=== PATIENT | female | born 1930 | race Caucasian/White ===

== ENCOUNTER → 2016-09-06 | Outpatient (CLI) | payer MEDICARE, OTHER ==
[~2016-09-06] MED LIST: B COTAB3 PO; CENTTAB9 PO; FOLI1TAB PO; THYR15 PO; VITA400C70 PO
[2016-09-06 09:23] LABS: ANION GAP 11 MEQ/L (5-15); BICARBONATE 24.3 MEQ/L (21.0-32.0); BLOOD UREA NITROGEN 13 MG/DL (7-18); CHLORIDE 102 MEQ/L (98-107); GLOMERULAR FILTRATION RATE 88 ML/MIN (>89); GLUCOSE,FASTING 94 MG/DL (74-99); POTASSIUM 4.2 MEQ/L (3.5-5.1); SODIUM (NA) 137 MEQ/L (136-145)
[2016-09-06 09:28] LABS: ALKALINE PHOSPHATASE 96 U/L (45-117); ALT (GPT) 25 U/L (10-53); AST (GOT) 29 U/L (15-37); HDL CHOLESTEROL 75.1 MG/DL (40.0-60.0); LDL CHOLESTEROL 59 MG/DL (0-99); TOTAL BILIRUBIN ADULT 3.3 MG/DL (0.2-1.0)
[2016-09-06 10:18] LABS: AUTOMATED NEUTROPHIL # 5.6 TH/MM3 (1.8-7.7); BASOPHIL # 0.2 TH/MM3 (0-0.2); BASOPHIL % 2.4 % (0.0-2.0); EOSINOPHIL # 0.1 TH/MM3 (0-0.4); HEMATOCRIT 28.1 % (35.0-46.0); LYMPH % 11.7 % (9.0-44.0); LYMPHOCYTE # 0.8 TH/MM3 (1.0-4.8); MEAN CELL VOLUME 97.6 FL (80.0-100.0); MEAN CORPUSCULAR HEMOGLOBIN 32.5 PG (27.0-34.0); MEAN CORPUSCULAR HGB CONC 33.3 % (32.0-36.0); MONO % 4.5 % (0.0-8.0); NEUT % 79.4 % (16.0-70.0); PLATELET COUNT 270 TH/MM3 (150-450); RED BLOOD COUNT 2.88 MIL/MM3 (4.00-5.30); RED CELL DISTRIBUTION WIDTH 15.9 % (11.6-17.2); WHITE BLOOD COUNT 7.1 TH/MM3 (4.0-11.0)
[2016-09-06 10:19] LABS: HEMO FLAGS AUTO DIFF
[2016-09-06 10:39] LABS: PLATELET ESTIMATE SMEAR NORMAL (NORMAL); PLATELET MORPHOLOGY NORMAL (NORMAL); SCAN/DIFF AUTO DIFF CONFIRMED
[2016-09-08 15:59] LABS: ESTRADIOL <10 pg/mL (())
[2016-09-11 23:55] LABS: PROGESTERONE LESS THAN 0.1 ng/mL (())
== END ==
LOC: HLAB 08:24
PROVIDERS: ATTEND Family Medicine
DX: I10 Essential (primary) hypertension (principal); E10.8 Type 1 diabetes mellitus with unspecified complications; E78.2 Mixed hyperlipidemia; E03.8 Other specified hypothyroidism; D59.1 Other autoimmune hemolytic anemias; Z00.00 Encounter for general adult medical examination without abnormal findings
CPT/HCPCS: 36415; 80053; 80061; 82670; 82679; 84144; 84403; 85025

== ENCOUNTER → 2016-10-31 | Outpatient (CLI) | payer MEDICARE, OTHER ==
[2016-10-31 08:56] LABS: ALT (GPT) 27 U/L (10-53); ANION GAP 11 MEQ/L (5-15); AST (GOT) 33 U/L (15-37); BICARBONATE 24.1 MEQ/L (21.0-32.0); BLOOD UREA NITROGEN 12 MG/DL (7-18); CHLORIDE 105 MEQ/L (98-107); GLOMERULAR FILTRATION RATE 88 ML/MIN (>89); GLUCOSE,FASTING 80 MG/DL (74-99); POTASSIUM 4.5 MEQ/L (3.5-5.1); SODIUM (NA) 140 MEQ/L (136-145)
[2016-10-31 09:07] LABS: ALKALINE PHOSPHATASE 93 U/L (45-117); IMMUNOGLOBULIN A 227 MG/DL (96-532); IMMUNOGLOBULIN G 727 MG/DL (650-1610); TOTAL BILIRUBIN ADULT 3.5 MG/DL (0.2-1.0); TOTAL PROTEIN SPE 7.7 GM/DL (6.0-7.6)
[2016-10-31 09:37] LABS: IMMUNOGLOBULIN M 1730 MG/DL (39-238)
[2016-10-31 10:08] LABS: HEMATOCRIT 28.5 % (35.0-46.0); HEMO FLAGS AUTO DIFF; MEAN CELL VOLUME 99.7 FL (80.0-100.0); MEAN CORPUSCULAR HEMOGLOBIN 33.7 PG (27.0-34.0); MEAN CORPUSCULAR HGB CONC 33.8 % (32.0-36.0); PLATELET COUNT 295 TH/MM3 (150-450); RED BLOOD COUNT 2.86 MIL/MM3 (4.00-5.30); WHITE BLOOD COUNT 8.7 TH/MM3 (4.0-11.0)
[2016-10-31 10:15] LABS: METAMYELOCYTES 1 % (0-1); NEUTROPHIL # MANUAL DIFF 6.2 TH/MM3 (1.8-7.7); POLYS (SEG NEUTROPHILS) 70 % (16-70); WBC DIFF SAMPLE 100
[2016-10-31 10:16] LABS: PLATELET ESTIMATE SMEAR NORMAL (NORMAL); PLATELET MORPHOLOGY NORMAL (NORMAL)
[2016-10-31 10:17] LABS: SCAN/DIFF FINAL DIFF MANUAL
[2016-11-01 11:43] LABS: ALBUMIN SPE 4.63 GM/DL (3.50-5.00); ALPHA 1 GLOBULIN 0.23 GM/DL (0.11-0.29); ALPHA 2 GLOBULIN 0.65 GM/DL (0.22-1.00); BETA GLOBULINS (SPE) 0.62 GM/DL (0.53-1.03)
== END ==
LOC: HLAB 08:14
PROVIDERS: ATTEND Internal Medicine Hematology
DX: D59.1 Other autoimmune hemolytic anemias (principal); D69.6 Thrombocytopenia, unspecified
CPT/HCPCS: 36415; 80053; 82784; 84165; 85007; 85027

== ENCOUNTER → 2017-01-24 | Outpatient (CLI) | payer MEDICARE, OTHER ==
[2017-01-24 08:22] LABS: MEAN CORPUSCULAR HGB CONC 37.3 % (32.0-36.0)
[2017-01-24 09:00] LABS: ALT (GPT) 29 U/L (10-53); ANION GAP 8 MEQ/L (5-15); AST (GOT) 26 U/L (15-37); BICARBONATE 24.8 MEQ/L (21.0-32.0); BLOOD UREA NITROGEN 11 MG/DL (7-18); CHLORIDE 105 MEQ/L (98-107); GLOMERULAR FILTRATION RATE 82 ML/MIN (>89); GLUCOSE,FASTING 90 MG/DL (74-99); POTASSIUM 4.6 MEQ/L (3.5-5.1); SODIUM (NA) 138 MEQ/L (136-145)
[2017-01-24 09:32] LABS: ALKALINE PHOSPHATASE 102 U/L (45-117); IMMUNOGLOBULIN A 212 MG/DL (96-532); IMMUNOGLOBULIN G 714 MG/DL (650-1610); IMMUNOGLOBULIN M 1730 MG/DL (39-238); TOTAL BILIRUBIN ADULT 2.9 MG/DL (0.2-1.0)
[2017-01-24 10:34] LABS: AUTOMATED NEUTROPHIL # 6.5 TH/MM3 (1.8-7.7); BASOPHIL % 0.5 % (0.0-2.0); EOSINOPHIL # 0.1 TH/MM3 (0-0.4); HEMATOCRIT 28.6 % (35.0-46.0); LYMPH % 19.8 % (9.0-44.0); LYMPHOCYTE # 1.8 TH/MM3 (1.0-4.8); MEAN CELL VOLUME 106.5 FL (80.0-100.0); MEAN CORPUSCULAR HEMOGLOBIN 39.7 PG (27.0-34.0); MONO % 9.2 % (0.0-8.0); NEUT % 69.5 % (16.0-70.0); RED BLOOD COUNT 2.69 MIL/MM3 (4.00-5.30); RED CELL DISTRIBUTION WIDTH 14.5 % (11.6-17.2); WHITE BLOOD COUNT 9.3 TH/MM3 (4.0-11.0)
[2017-01-24 10:36] LABS: HEMO FLAGS AUTO DIFF; PLATELET COUNT 292 TH/MM3 (150-450)
[2017-01-24 10:46] LABS: PLATELET ESTIMATE SMEAR NORMAL (NORMAL); PLATELET MORPHOLOGY NORMAL (NORMAL); SCAN/DIFF AUTO DIFF CONFIRMED
[2017-01-24 21:36] LABS: ALBUMIN SPE 4.78 GM/DL (3.50-5.00); ALPHA 1 GLOBULIN 0.22 GM/DL (0.11-0.29); ALPHA 2 GLOBULIN 0.65 GM/DL (0.22-1.00)
== END ==
LOC: HLAB 08:12
PROVIDERS: ATTEND Internal Medicine Hematology
DX: D59.1 Other autoimmune hemolytic anemias (principal); D69.6 Thrombocytopenia, unspecified
CPT/HCPCS: 36415; 80053; 82784; 84165; 85025

== ENCOUNTER → 2017-03-06 | Outpatient (CLI) | payer MEDICARE, OTHER ==
[2017-03-06 08:55] LABS: ANION GAP 9 MEQ/L (5-15); BICARBONATE 22.9 MEQ/L (21.0-32.0); BLOOD UREA NITROGEN 14 MG/DL (7-18); CHLORIDE 105 MEQ/L (98-107); GLOMERULAR FILTRATION RATE 80 ML/MIN (>89); GLUCOSE,FASTING 93 MG/DL (74-99); MAGNESIUM 1.9 MG/DL (1.5-2.5); POTASSIUM 4.3 MEQ/L (3.5-5.1); SODIUM (NA) 137 MEQ/L (136-145)
[2017-03-06 08:56] LABS: AST (GOT) 24 U/L (15-37)
[2017-03-06 09:10] LABS: ALKALINE PHOSPHATASE 92 U/L (45-117); ALT (GPT) 24 U/L (10-53); THYROXINE (T4) 15.5 MCG/DL (4.8-13.9); TOTAL BILIRUBIN ADULT 3.1 MG/DL (0.2-1.0)
[2017-03-06 10:13] LABS: AUTOMATED NEUTROPHIL # 5.5 TH/MM3 (1.8-7.7); BASOPHIL % 0.4 % (0.0-2.0); EOSINOPHIL # 0.1 TH/MM3 (0-0.4); EOSINOPHIL % 1.5 % (0.0-4.0); HEMO FLAGS AUTO DIFF; LYMPH % 15.5 % (9.0-44.0); LYMPHOCYTE # 1.1 TH/MM3 (1.0-4.8); MEAN CELL VOLUME 97.7 FL (80.0-100.0); MEAN CORPUSCULAR HEMOGLOBIN 32.2 PG (27.0-34.0); MEAN CORPUSCULAR HGB CONC 32.9 % (32.0-36.0); NEUT % 75.6 % (16.0-70.0); PLATELET COUNT 180 TH/MM3 (150-450); RED BLOOD COUNT 3.48 MIL/MM3 (4.00-5.30); RED CELL DISTRIBUTION WIDTH 13.9 % (11.6-17.2); WHITE BLOOD COUNT 7.2 TH/MM3 (4.0-11.0)
[2017-03-06 11:08] LABS: BANDS 2 % (0-6); METAMYELOCYTES 1 % (0-1); POLYS (SEG NEUTROPHILS) 66 % (16-70); WBC DIFF SAMPLE 100
[2017-03-06 11:09] LABS: ROULEAUX PRESENT (NORMAL)
[2017-03-06 11:10] LABS: PLATELET ESTIMATE SMEAR NORMAL (NORMAL); PLATELET MORPHOLOGY NORMAL (NORMAL); SCAN/DIFF FINAL DIFF MANUAL
== END ==
LOC: HLAB 08:07
PROVIDERS: ATTEND Family Medicine
DX: E55.9 Vitamin D deficiency, unspecified (principal); E03.8 Other specified hypothyroidism; E87.8 Other disorders of electrolyte and fluid balance, not elsewhere classified; Z79.899 Other long term (current) drug therapy
CPT/HCPCS: 36415; 80053; 82306; 82746; 83735; 84436; 84443; 84480; 85007; 85027

== ENCOUNTER → 2017-06-05 | Outpatient (CLI) | payer MEDICARE, OTHER ==
[2017-06-05 09:08] LABS: ANION GAP 8 MEQ/L (5-15); AST (GOT) 35 U/L (15-37); BLOOD UREA NITROGEN 12 MG/DL (7-18); CHLORIDE 105 MEQ/L (98-107); GLOMERULAR FILTRATION RATE 91 ML/MIN (>89); POTASSIUM 4.7 MEQ/L (3.5-5.1); SODIUM (NA) 137 MEQ/L (136-145)
[2017-06-05 09:09] LABS: ALT (GPT) 26 U/L (10-53)
[2017-06-05 09:23] LABS: ALKALINE PHOSPHATASE 103 U/L (45-117); HDL CHOLESTEROL 69.6 MG/DL (40.0-60.0); LDL CHOLESTEROL 63 MG/DL (0-99); THYROXINE (T4) 15.2 MCG/DL (4.8-13.9); TOTAL BILIRUBIN ADULT 3.6 MG/DL (0.2-1.0)
[2017-06-05 10:31] LABS: AUTOMATED NEUTROPHIL # 5.7 TH/MM3 (1.8-7.7); BASOPHIL % 0.6 % (0.0-2.0); EOSINOPHIL # 0.1 TH/MM3 (0-0.4); EOSINOPHIL % 0.9 % (0.0-4.0); HEMATOCRIT 35.1 % (35.0-46.0); HEMO FLAGS AUTO DIFF; LYMPH % 20.3 % (9.0-44.0); LYMPHOCYTE # 1.6 TH/MM3 (1.0-4.8); MEAN CELL VOLUME 100.4 FL (80.0-100.0); MEAN CORPUSCULAR HEMOGLOBIN 34.1 PG (27.0-34.0); MONO % 8.3 % (0.0-8.0); NEUT % 69.9 % (16.0-70.0); PLATELET COUNT 280 TH/MM3 (150-450); RED BLOOD COUNT 3.49 MIL/MM3 (4.00-5.30); RED CELL DISTRIBUTION WIDTH 14.9 % (11.6-17.2); WHITE BLOOD COUNT 8.1 TH/MM3 (4.0-11.0)
[2017-06-05 10:33] LABS: SCAN/DIFF AUTO DIFF CONFIRMED
== END ==
LOC: HLAB 08:21
PROVIDERS: ATTEND Family Medicine
DX: E78.2 Mixed hyperlipidemia (principal); E03.8 Other specified hypothyroidism; D59.1 Other autoimmune hemolytic anemias; E53.8 Deficiency of other specified B group vitamins; Z79.899 Other long term (current) drug therapy
CPT/HCPCS: 36415; 80053; 80061; 82746; 84436; 84443; 84480; 85025

== ENCOUNTER → 2017-07-24 | Outpatient (CLI) | payer MEDICARE, OTHER ==
[2017-07-24 09:07] LABS: ANION GAP 10 MEQ/L (5-15); AST (GOT) 40 U/L (15-37); BICARBONATE 24.4 MEQ/L (21.0-32.0); BLOOD UREA NITROGEN 10 MG/DL (7-18); CHLORIDE 102 MEQ/L (98-107); GLOMERULAR FILTRATION RATE 67 ML/MIN (>89); GLUCOSE,FASTING 99 MG/DL (74-99); POTASSIUM 4.8 MEQ/L (3.5-5.1); SODIUM (NA) 136 MEQ/L (136-145)
[2017-07-24 09:11] LABS: ALKALINE PHOSPHATASE 105 U/L (45-117); ALT (GPT) 25 U/L (10-53)
[2017-07-24 09:59] LABS: AUTOMATED NEUTROPHIL # 7.3 TH/MM3 (1.8-7.7); BASOPHIL # 0.1 TH/MM3 (0-0.2); BASOPHIL % 0.8 % (0.0-2.0); EOSINOPHIL # 0.1 TH/MM3 (0-0.4); EOSINOPHIL % 1.3 % (0.0-4.0); LYMPH % 24.2 % (9.0-44.0); LYMPHOCYTE # 2.6 TH/MM3 (1.0-4.8); MONO % 6.4 % (0.0-8.0); NEUT % 67.3 % (16.0-70.0); PLATELET COUNT 313 TH/MM3 (150-450); WHITE BLOOD COUNT 10.8 TH/MM3 (4.0-11.0)
[2017-07-24 10:39] LABS: HEMATOCRIT 24.4 % (35.0-46.0); MEAN CELL VOLUME 99.3 FL (80.0-100.0); MEAN CORPUSCULAR HEMOGLOBIN 32.9 PG (27.0-34.0); MEAN CORPUSCULAR HGB CONC 33.1 % (32.0-36.0); RED BLOOD COUNT 2.56 MIL/MM3 (4.00-5.30)
[2017-07-24 10:40] LABS: HEMO FLAGS AUTO DIFF
[2017-07-24 10:54] LABS: BANDS 1 % (0-6); EOSINOPHILS 1 % (0-4); MYELOCYTES 1 % (0-0); NEUTROPHIL # MANUAL DIFF 7.6 TH/MM3 (1.8-7.7); PLATELET ESTIMATE SMEAR NORMAL (NORMAL); PLATELET MORPHOLOGY NORMAL (NORMAL); POLYS (SEG NEUTROPHILS) 68 % (16-70); WBC DIFF SAMPLE 100
[2017-07-24 10:55] LABS: SCAN/DIFF FINAL DIFF MANUAL
[2017-07-24 15:32] LABS: IMMUNOGLOBULIN A 227 MG/DL (96-532); IMMUNOGLOBULIN G 711 MG/DL (650-1610)
[2017-07-24 16:01] LABS: IMMUNOGLOBULIN M 2080 MG/DL (39-238)
[2017-07-24 16:16] LABS: TOTAL PROTEIN SPE 8.7 GM/DL (6.0-7.6)
[2017-07-24 22:33] LABS: ALBUMIN SPE 5.27 GM/DL (3.50-5.00); ALPHA 1 GLOBULIN 0.22 GM/DL (0.11-0.29); ALPHA 2 GLOBULIN 0.71 GM/DL (0.22-1.00); BETA GLOBULINS (SPE) 0.68 GM/DL (0.53-1.03)
[2017-07-27 03:50] LABS: KAPPA/LAMBDA FREE 13.79 (0.26-1.65)
== END ==
LOC: HLAB 08:13
PROVIDERS: ATTEND Internal Medicine Hematology
DX: D59.1 Other autoimmune hemolytic anemias (principal); D69.6 Thrombocytopenia, unspecified
CPT/HCPCS: 36415; 80053; 82784; 83883; 84165; 85007; 85027

== ENCOUNTER → 2017-10-22 | Outpatient (CLI) | payer MEDICARE, OTHER ==
[2017-10-22 09:01] LABS: ALBUMIN 4.2 GM/DL (3.4-5.0); AST (GOT) 45 U/L (15-37); BICARBONATE 26.5 MEQ/L (21.0-32.0); BLOOD UREA NITROGEN 12 MG/DL (7-18); CALCIUM 9.6 MG/DL (8.5-10.1); CHLORIDE 100 MEQ/L (98-107); CHOLESTEROL 148 MG/DL (120-200); CREATININE 0.74 MG/DL (0.50-1.00); GLOMERULAR FILTRATION RATE 74 ML/MIN (>89); GLUCOSE,FASTING 93 MG/DL (74-99); SODIUM (NA) 132 MEQ/L (136-145)
[2017-10-22 09:12] LABS: ALKALINE PHOSPHATASE 105 U/L (45-117); ALT (GPT) 29 U/L (10-53); CHOLESTEROL/ HDL RATIO 2.35 RATIO; HDL CHOLESTEROL 62.8 MG/DL (40.0-60.0); LDL CHOLESTEROL 65 MG/DL (0-99); THYROXINE (T4) 10.6 MCG/DL (4.8-13.9); TOTAL BILIRUBIN ADULT 3.1 MG/DL (0.2-1.0); TOTAL PROTEIN 8.9 GM/DL (6.4-8.2); TRIGLYCERIDES 100 MG/DL (42-150)
[2017-10-22 09:17] LABS: FOLATE GREATER THAN 20.0 NG/ML (3.1-17.5)
[2017-10-22 10:32] LABS: AUTOMATED NEUTROPHIL # 6.1 TH/MM3 (1.8-7.7); BASOPHIL % 0.2 % (0.0-2.0); EOSINOPHIL # 0.1 TH/MM3 (0-0.4); EOSINOPHIL % 1.6 % (0.0-4.0); HEMATOCRIT 28.5 % (35.0-46.0); HEMOGLOBIN 9.9 GM/DL (11.6-15.3); LYMPH % 24.4 % (9.0-44.0); LYMPHOCYTE # 2.2 TH/MM3 (1.0-4.8); MEAN CELL VOLUME 108.9 FL (80.0-100.0); MEAN CORPUSCULAR HGB CONC 34.9 % (32.0-36.0); MONO % 6.9 % (0.0-8.0); MONOCYTE # 0.6 TH/MM3 (0-0.9); NEUT % 66.9 % (16.0-70.0); RED BLOOD COUNT 2.62 MIL/MM3 (4.00-5.30); RED CELL DISTRIBUTION WIDTH 15.7 % (11.6-17.2); WHITE BLOOD COUNT 9.2 TH/MM3 (4.0-11.0)
[2017-10-22 10:35] LABS: MEAN PLATELET VOLUME 6.9 FL (7.0-11.0); PLATELET COUNT 317 TH/MM3 (150-450)
== END ==
LOC: HLAB 08:04
PROVIDERS: ATTEND Family Medicine
DX: I10 Essential (primary) hypertension (principal); E78.2 Mixed hyperlipidemia; E03.8 Other specified hypothyroidism; Z79.899 Other long term (current) drug therapy; D59.1 Other autoimmune hemolytic anemias; E53.8 Deficiency of other specified B group vitamins
CPT/HCPCS: 80053; 80061; 82746; 84436; 84443; 84480; 85025

== ENCOUNTER → 2018-01-23 | Outpatient (CLI) | payer MEDICARE, OTHER ==
[2018-01-23 08:33] LABS: MEAN PLATELET VOLUME 6.8 FL (7.0-11.0); PLATELET COUNT 267 TH/MM3 (150-450)
[2018-01-23 09:25] LABS: ALKALINE PHOSPHATASE 86 U/L (45-117); IMMUNOGLOBULIN A 223 MG/DL (96-532); IMMUNOGLOBULIN G 739 MG/DL (650-1610); IMMUNOGLOBULIN M 1870 MG/DL (39-238); TOTAL PROTEIN 8.4 GM/DL (6.4-8.2)
[2018-01-23 09:44] LABS: ALBUMIN 4.2 GM/DL (3.4-5.0); ALT (GPT) 26 U/L (10-53); BICARBONATE 23.7 MEQ/L (21.0-32.0); BLOOD UREA NITROGEN 12 MG/DL (7-18); CHLORIDE 104 MEQ/L (98-107); CREATININE 0.65 MG/DL (0.50-1.00); GLOMERULAR FILTRATION RATE 86 ML/MIN (>89); GLUCOSE,FASTING 92 MG/DL (74-99); SODIUM (NA) 138 MEQ/L (136-145)
[2018-01-23 09:52] LABS: AST (GOT) 49 U/L (15-37); HEMOGLOBIN 9.5 GM/DL (11.6-15.3); MEAN CELL VOLUME 101.8 FL (80.0-100.0); MEAN CORPUSCULAR HEMOGLOBIN 33.5 PG (27.0-34.0); MEAN CORPUSCULAR HGB CONC 32.9 % (32.0-36.0); RED BLOOD COUNT 2.85 MIL/MM3 (4.00-5.30); RED CELL DISTRIBUTION WIDTH 14.7 % (11.6-17.2)
[2018-01-23 10:10] LABS: LYMPHOCYTES 35 % (9-44); MONOCYTES 5 % (0-8); NEUTROPHIL # MANUAL DIFF 14.4 TH/MM3 (1.8-7.7); POLYS (SEG NEUTROPHILS) 60 % (16-70)
[2018-01-23 22:24] LABS: ALB/GLOB RATIO (SPE) 1.58 (1.39-2.23)
[2018-01-24 23:53] LABS: KAPPA/LAMBDA FREE 13.51 (0.26-1.65)
== END ==
LOC: HLAB 07:56
PROVIDERS: ATTEND Family Medicine
DX: E55.9 Vitamin D deficiency, unspecified (principal); E03.8 Other specified hypothyroidism; D69.6 Thrombocytopenia, unspecified; D59.1 Other autoimmune hemolytic anemias; Z79.899 Other long term (current) drug therapy
CPT/HCPCS: 36415; 80053; 82652; 82784; 83789; 83883; 84165; 85007; 85027